=== PATIENT | female | born 1940 | race Caucasian/White ===

== ENCOUNTER 2023-06-24 17:01 | Inpatient (IN) | payer MEDICARE, OTHER ==
[2023-06-24] MEDS ORDERED: Furosemide 40 MG/4 ML VIAL ONE (18:13)
[2023-06-24] MEDS ORDERED: Nitroglycerin 2% Ointment 1 INCH/1 GM Packet ONE (18:13)
[2023-06-24 18:16] LABS: #Eosinphils 0.2 thou/uL (0.0-0.7); #Monocytes 0.4 thou/uL (0.11-0.59); #Neutrophils 3.7 thou/uL (1.40-6.50); %Basophils 0.4 % (0.0-1.0); %Eosinophils 4.2 % (0.0-10.0); %Lymphocytes 18.8 % (21.0-51.0); %Monocytes 8.1 % (0.0-10.0); %Neutrophils 68.3 % (42.0-75.0); Hematocrit 39.6 % (36.0-47.0); Hemoglobin 11.8 g/dL (12.0-16.0); Mean Corpuscular HGB CONC 29.8 g/dL (32.0-36.0); Mean Corpuscular Volume 87.2 fl (78.0-98.0); Platelet Count 202 10x3/uL (130-400); RBC Distribution Width 15.9 % (11.5-14.5); Red Blood Cell (RBC) Count 4.54 mill/uL (4.20-5.40); White Blood Cell (WBC) Count 5.4 10x3/uL (4.8-10.8)
[2023-06-24 18:37] LABS: INR-International Normal Ratio 1.4; Prothrombin Time 17.7 sec (12.0-14.7)
[2023-06-24 18:38] LABS: PTT 32.7 sec (22.9-36.1)
[2023-06-24 18:41] LABS: Troponin I 0.023 ng/mL (< 0.028)
[2023-06-24 18:53] LABS: ALT (SGPT) 13 U/L (8-55); AST (SGOT) 25 U/L (5-34); Albumin 3.3 g/dL (3.4-4.8); Alkaline Phosphatase 82 U/L (40-110); Anion Gap 11 mmol/L (10-20); BUN (Urea Nitrogen) 17 mg/dL (9.8-20.1); Bilirubin, Total 1.1 mg/dL (0.2-1.2); Calc. Creatinine Clearance 0 mL/min (70-130); Calcium 8.8 mg/dL (7.8-10.44); Carbon Dioxide 30 mmol/L (23-31); Chloride 102 mmol/L (98-107); Estimated GFR 55; Globulin 2.9 g/dL (2.4-3.5); Glucose 138 mg/dL (83-110); Potassium 4.9 mmol/L (3.5-5.1); Protein, Total 6.2 g/dL (5.8-8.1); Sodium 138 mmol/L (136-145)
[2023-06-24] MEDS ORDERED: Nitroglycerin 0.4 MG TAB 1 EACH ONE ×2 (19:39→19:41)
[2023-06-24] MEDS ORDERED: Senokot S 8.6-50 MG TAB PO PRN (19:55)
[2023-06-24] MEDS ORDERED: Acetaminophen 325 MG TAB PO PRN (19:55)
[2023-06-24] MEDS ORDERED: Ondansetron ODT 4 MG TAB PO PRN (19:55)
[2023-06-24] MEDS ORDERED: hydrALAZINE 25 MG TAB PO SCH (21:00)
[2023-06-24] MEDS: Gabapentin 100 MG CAP PO SCH (21:27)
[2023-06-24] MEDS: Carvedilol 3.125 MG TAB PO SCH (21:28)
[2023-06-24] MEDS: Atorvastatin Calcium 10 MG TAB PO SCH (21:28)
[2023-06-24 21:37] VITALS: BMI 41.9
[2023-06-24] MEDS: Famotidine 20 MG TAB PO SCH (21:41)
[2023-06-25] MEDS: ALPRAZolam 0.25 MG TAB PO PRN ×2 (02:54→21:05)
[2023-06-25 04:02] LABS: #Eosinphils 0.3 thou/uL (0.0-0.7); #Monocytes 0.5 thou/uL (0.11-0.59); #Neutrophils 3.5 thou/uL (1.40-6.50); %Basophils 0.6 % (0.0-1.0); %Lymphocytes 19.7 % (21.0-51.0); %Monocytes 9.1 % (0.0-10.0); %Neutrophils 64.4 % (42.0-75.0); Hematocrit 39.4 % (36.0-47.0); Hemoglobin 11.7 g/dL (12.0-16.0); Mean Corpuscular HGB CONC 29.7 g/dL (32.0-36.0); Mean Corpuscular Hemoglobin 26.1 pg (27.0-31.0); Mean Corpuscular Volume 87.9 fl (78.0-98.0); Mean Platelet Volume 11.4 fL (7.4-10.4); Platelet Count 197 10x3/uL (130-400); RBC Distribution Width 15.8 % (11.5-14.5); Red Blood Cell (RBC) Count 4.48 mill/uL (4.20-5.40); White Blood Cell (WBC) Count 5.4 10x3/uL (4.8-10.8)
[2023-06-25 04:28] LABS: Anion Gap 11 mmol/L (10-20); BUN (Urea Nitrogen) 17 mg/dL (9.8-20.1); Calc. Creatinine Clearance 83 mL/min (70-130); Calcium 8.6 mg/dL (7.8-10.44); Carbon Dioxide 31 mmol/L (23-31); Chloride 100 mmol/L (98-107); Estimated GFR 55; Glucose 168 mg/dL (83-110); Magnesium 1.5 mg/dL (1.6-2.6); Potassium 4.3 mmol/L (3.5-5.1); Sodium 138 mmol/L (136-145)
[2023-06-25] MEDS: Furosemide 40 MG/4 ML VIAL SLOW IVP SCH ×2 (05:17→14:21)
[2023-06-25] MEDS ORDERED: Magnesium 2 GM/50 ML(in water) 2 GM in Premix Bag 1 BAG IVPB SCH (08:15)
[2023-06-25] MEDS: Famotidine 20 MG TAB PO SCH ×2 (08:21→21:05)
[2023-06-25] MEDS: Carvedilol 3.125 MG TAB PO SCH ×2 (08:21→21:05)
[2023-06-25] MEDS: Losartan 25 MG TAB PO SCH (08:21)
[2023-06-25] MEDS: Gabapentin 100 MG CAP PO SCH ×2 (08:21→21:08)
[2023-06-25] MEDS: Aspirin Chewable 81 MG TAB PO SCH (08:21)
[2023-06-25] MEDS: metFORMIN 500 MG TAB PO SCH ×2 (08:21→17:39)
[2023-06-25] MEDS: Amlodipine 5 MG TAB PO SCH (08:22)
[2023-06-25] MEDS: hydrALAZINE 25 MG TAB PO SCH ×3 (10:04→21:05)
[2023-06-25 16:39] LABS: Free T4 (Free Thyroxine) 0.92 ng/dL (0.70-1.48)
[2023-06-25] MEDS: Enoxaparin 120 MG/0.8 ML SYRINGE SC SCH (21:04)
[2023-06-25] MEDS: Atorvastatin Calcium 10 MG TAB PO SCH (21:05)
[2023-06-26] MEDS: Furosemide 40 MG/4 ML VIAL SLOW IVP SCH ×2 (05:50→14:57)
[2023-06-26] MEDS: Enoxaparin 120 MG/0.8 ML SYRINGE SC SCH ×2 (09:06→20:00)
[2023-06-26] MEDS: Losartan 25 MG TAB PO SCH (09:07)
[2023-06-26] MEDS: hydrALAZINE 25 MG TAB PO SCH ×3 (09:07→19:59)
[2023-06-26] MEDS: Famotidine 20 MG TAB PO SCH ×2 (09:07→19:59)
[2023-06-26] MEDS: metFORMIN 500 MG TAB PO SCH ×2 (09:07→17:09)
[2023-06-26] MEDS: Aspirin Chewable 81 MG TAB PO SCH (09:07)
[2023-06-26] MEDS: Amlodipine 5 MG TAB PO SCH (09:07)
[2023-06-26] MEDS: Gabapentin 100 MG CAP PO SCH ×2 (09:08→19:59)
[2023-06-26] MEDS: Carvedilol 3.125 MG TAB PO SCH ×2 (09:08→19:58)
[2023-06-26 10:09] LABS: Anion Gap 11 mmol/L (10-20); BUN (Urea Nitrogen) 14 mg/dL (9.8-20.1); Calc. Creatinine Clearance 79 mL/min (70-130); Calcium 8.5 mg/dL (7.8-10.44); Carbon Dioxide 36 mmol/L (23-31); Chloride 96 mmol/L (98-107); Estimated GFR 56; Glucose 137 mg/dL (83-110); Magnesium 1.3 mg/dL (1.6-2.6); Potassium 3.6 mmol/L (3.5-5.1); Sodium 139 mmol/L (136-145)
[2023-06-26] MEDS: Atorvastatin Calcium 10 MG TAB PO SCH (19:58)
[2023-06-26] MEDS: ALPRAZolam 0.25 MG TAB PO PRN (20:00)
[2023-06-27 04:22] LABS: BUN (Urea Nitrogen) 14 mg/dL (9.8-20.1); Calc. Creatinine Clearance 76 mL/min (70-130); Calcium 8.2 mg/dL (7.8-10.44); Estimated GFR 55; Glucose 154 mg/dL (83-110)
[2023-06-27 04:33] LABS: Anion Gap 17 mmol/L (10-20); Carbon Dioxide 31 mmol/L (23-31); Chloride 96 mmol/L (98-107); Potassium 3.6 mmol/L (3.5-5.1); Sodium 140 mmol/L (136-145)
[2023-06-27] MEDS: Levothyroxine 175 MCG TAB PO SCH (06:19)
[2023-06-27] MEDS: Furosemide 40 MG/4 ML VIAL SLOW IVP SCH ×2 (06:20→15:13)
[2023-06-27 08:18] LABS: Magnesium 1.2 mg/dL (1.6-2.6)
[2023-06-27] MEDS: Gabapentin 100 MG CAP PO SCH ×2 (08:29→20:40)
[2023-06-27] MEDS: Aspirin Chewable 81 MG TAB PO SCH (08:29)
[2023-06-27] MEDS: Amlodipine 5 MG TAB PO SCH (08:29)
[2023-06-27] MEDS: Famotidine 20 MG TAB PO SCH ×2 (08:29→20:40)
[2023-06-27] MEDS: hydrALAZINE 25 MG TAB PO SCH ×3 (08:29→20:39)
[2023-06-27] MEDS: Carvedilol 3.125 MG TAB PO SCH ×2 (08:29→20:40)
[2023-06-27] MEDS: metFORMIN 500 MG TAB PO SCH ×2 (08:29→16:33)
[2023-06-27] MEDS: Enoxaparin 120 MG/0.8 ML SYRINGE SC SCH ×2 (08:29→20:40)
[2023-06-27] MEDS: Losartan 25 MG TAB PO SCH (08:29)
[2023-06-27] MEDS: ALPRAZolam 0.25 MG TAB PO PRN ×2 (08:33→20:38)
[2023-06-27] MEDS ORDERED: Magnesium 2 GM/50 ML(in water) 2 GM in Premix Bag 1 BAG IVPB SCH ×3 (11:45→16:00)
[2023-06-27] MEDS ORDERED: Magnesium Sulfate In Water 4 GM in Premix Bag 1 BAG IVPB SCH ×2 (12:00)
[2023-06-27] MEDS: traMADol HCl 50 MG TAB PO PRN (20:38)
[2023-06-27] MEDS: Atorvastatin Calcium 10 MG TAB PO SCH (20:39)
[2023-06-28 04:29] LABS: BUN (Urea Nitrogen) 16 mg/dL (9.8-20.1); Calc. Creatinine Clearance 77 mL/min (70-130); Calcium 8.2 mg/dL (7.8-10.44); Carbon Dioxide 36 mmol/L (23-31); Estimated GFR 57; Glucose 145 mg/dL (83-110); Magnesium 1.6 mg/dL (1.6-2.6)
[2023-06-28] MEDS: Levothyroxine 175 MCG TAB PO SCH (04:54)
[2023-06-28 07:12] LABS: Anion Gap 14 mmol/L (10-20); Chloride 93 mmol/L (98-107); Potassium 3.6 mmol/L (3.5-5.1); Sodium 138 mmol/L (136-145)
[2023-06-28] MEDS: metFORMIN 500 MG TAB PO SCH ×2 (11:08→15:24)
[2023-06-28] MEDS: Gabapentin 100 MG CAP PO SCH ×2 (11:08→20:40)
[2023-06-28] MEDS: Amlodipine 5 MG TAB PO SCH (11:09)
[2023-06-28] MEDS: hydrALAZINE 25 MG TAB PO SCH ×3 (11:09→20:40)
[2023-06-28] MEDS: Aspirin Chewable 81 MG TAB PO SCH (11:09)
[2023-06-28] MEDS: Furosemide 40 MG TAB PO SCH (11:09)
[2023-06-28] MEDS: Carvedilol 3.125 MG TAB PO SCH ×2 (11:10→20:43)
[2023-06-28] MEDS: Enoxaparin 120 MG/0.8 ML SYRINGE SC SCH ×2 (11:10→20:43)
[2023-06-28] MEDS: Famotidine 20 MG TAB PO SCH ×2 (13:25→20:42)
[2023-06-28] MEDS: Losartan 25 MG TAB PO SCH (16:41)
[2023-06-28] MEDS: Atorvastatin Calcium 10 MG TAB PO SCH (20:42)
[2023-06-28] MEDS: ALPRAZolam 0.25 MG TAB PO PRN (21:49)
[2023-06-29] MEDS: Levothyroxine 175 MCG TAB PO SCH (06:09)
[2023-06-29 07:49] LABS: BUN (Urea Nitrogen) 14 mg/dL (9.8-20.1); Calc. Creatinine Clearance 84 mL/min (70-130); Calcium 8.5 mg/dL (7.8-10.44); Estimated GFR 63; Glucose 124 mg/dL (83-110); Magnesium 1.6 mg/dL (1.6-2.6)
[2023-06-29 07:59] LABS: Anion Gap 17 mmol/L (10-20); Carbon Dioxide 33 mmol/L (23-31); Chloride 92 mmol/L (98-107); Potassium 3.7 mmol/L (3.5-5.1); Sodium 138 mmol/L (136-145)
[2023-06-29] MEDS: Gabapentin 100 MG CAP PO SCH ×2 (09:34→20:27)
[2023-06-29] MEDS: Aspirin Chewable 81 MG TAB PO SCH (09:35)
[2023-06-29] MEDS: Famotidine 20 MG TAB PO SCH (09:35)
[2023-06-29] MEDS: metFORMIN 500 MG TAB PO SCH ×2 (09:36→16:10)
[2023-06-29] MEDS: Amlodipine 5 MG TAB PO SCH (09:36)
[2023-06-29] MEDS: Carvedilol 3.125 MG TAB PO SCH ×2 (09:36→20:27)
[2023-06-29] MEDS: Furosemide 40 MG TAB PO SCH (09:37)
[2023-06-29] MEDS: Enoxaparin 120 MG/0.8 ML SYRINGE SC SCH (09:37)
[2023-06-29] MEDS: hydrALAZINE 25 MG TAB PO SCH ×3 (09:38→20:28)
[2023-06-29] MEDS: Losartan 25 MG TAB PO SCH (09:39)
[2023-06-29] MEDS ORDERED: Electrolyte Replacement Protocol 1 EACH FS SCH (10:30)
[2023-06-29] MEDS ORDERED: Electrolyte Replacement Protocol FS PRN (10:45)
[2023-06-29] MEDS ORDERED: Levothyroxine Sodium 25 MCG TAB PO SCH (10:45)
[2023-06-29] MEDS ORDERED: Magnesium 2 GM/50 ML(in water) 2 GM in Premix Bag 1 BAG IVPB SCH (10:45)
[2023-06-29] MEDS: traMADol HCl 50 MG TAB PO PRN (13:51)
[2023-06-29] MEDS: Furosemide 40 MG/4 ML VIAL SLOW IVP SCH (13:54)
[2023-06-29] MEDS: Atorvastatin Calcium 10 MG TAB PO SCH (20:27)
[2023-06-29] MEDS: Apixaban 5 MG TAB PO SCH (20:27)
[2023-06-29] MEDS: ALPRAZolam 0.25 MG TAB PO PRN (20:29)
[2023-06-30 04:53] LABS: BUN (Urea Nitrogen) 17 mg/dL (9.8-20.1); Calc. Creatinine Clearance 82 mL/min (70-130); Calcium 8.5 mg/dL (7.8-10.44); Estimated GFR 59; Glucose 159 mg/dL (83-110); Magnesium 1.7 mg/dL (1.6-2.6)
[2023-06-30 05:02] LABS: Anion Gap 18 mmol/L (10-20); Carbon Dioxide 32 mmol/L (23-31); Chloride 91 mmol/L (98-107); Potassium 3.8 mmol/L (3.5-5.1); Sodium 137 mmol/L (136-145)
[2023-06-30] MEDS: Levothyroxine Sodium 100 MCG TAB PO SCH (05:45)
[2023-06-30] MEDS: Furosemide 40 MG/4 ML VIAL SLOW IVP SCH ×2 (05:45→13:42)
[2023-06-30] MEDS: FLUoxetine HCl 10 MG CAP PO SCH (07:46)
[2023-06-30] MEDS: metFORMIN 500 MG TAB PO SCH ×2 (07:46→18:07)
[2023-06-30] MEDS: Gabapentin 100 MG CAP PO SCH ×2 (07:47→21:22)
[2023-06-30] MEDS: Losartan 25 MG TAB PO SCH (07:47)
[2023-06-30] MEDS: hydrALAZINE 25 MG TAB PO SCH ×3 (07:48→21:23)
[2023-06-30] MEDS: Aspirin Chewable 81 MG TAB PO SCH (07:49)
[2023-06-30] MEDS: Carvedilol 3.125 MG TAB PO SCH ×2 (07:49→21:22)
[2023-06-30] MEDS: Amlodipine 5 MG TAB PO SCH (07:49)
[2023-06-30] MEDS: Apixaban 5 MG TAB PO SCH ×2 (07:49→21:22)
[2023-06-30] MEDS ORDERED: Magnesium 2 GM/50 ML(in water) 2 GM in Premix Bag 1 BAG IVPB SCH (08:00)
[2023-06-30] MEDS ORDERED: Furosemide 40 MG TAB PO SCH (14:00)
[2023-06-30] MEDS: ALPRAZolam 0.25 MG TAB PO PRN (18:15)
[2023-06-30] MEDS: Atorvastatin Calcium 10 MG TAB PO SCH (21:22)
[2023-06-30] MEDS: traMADol HCl 50 MG TAB PO PRN (21:26)
[2023-07-01 05:51] LABS: Anion Gap 11 mmol/L (10-20); BUN (Urea Nitrogen) 17 mg/dL (9.8-20.1); Calc. Creatinine Clearance 87 mL/min (70-130); Calcium 8.3 mg/dL (7.8-10.44); Carbon Dioxide 37 mmol/L (23-31); Chloride 93 mmol/L (98-107); Estimated GFR 63; Glucose 170 mg/dL (83-110); Magnesium 1.7 mg/dL (1.6-2.6); Potassium 3.7 mmol/L (3.5-5.1); Sodium 137 mmol/L (136-145)
[2023-07-01] MEDS: Levothyroxine Sodium 100 MCG TAB PO SCH (05:55)
[2023-07-01] MEDS: hydrALAZINE 25 MG TAB PO SCH ×2 (08:43→14:04)
[2023-07-01] MEDS: Losartan 25 MG TAB PO SCH (08:43)
[2023-07-01] MEDS: Aspirin Chewable 81 MG TAB PO SCH (08:43)
[2023-07-01] MEDS: FLUoxetine HCl 10 MG CAP PO SCH (08:43)
[2023-07-01] MEDS: Gabapentin 100 MG CAP PO SCH (08:43)
[2023-07-01] MEDS: Furosemide 40 MG TAB PO SCH ×2 (08:44→14:04)
[2023-07-01] MEDS: Carvedilol 3.125 MG TAB PO SCH (08:44)
[2023-07-01] MEDS: Apixaban 5 MG TAB PO SCH (08:44)
[2023-07-01] MEDS: Amlodipine 5 MG TAB PO SCH (08:44)
[2023-07-01] MEDS: metFORMIN 500 MG TAB PO SCH (08:44)
[2023-07-01] MEDS ORDERED: Magnesium 2 GM/50 ML(in water) 2 GM in Premix Bag 1 BAG IVPB SCH (10:00)
[2023-07-01 15:55] VITALS: BP 119/62; TEMP 98.3
== END 2023-07-01 16:50 | DRG 291 ==
LOC: ERS 17:01 → 2NO 19:48 → INTOOBSV 19:48 → OBSVTOIN 06-25 16:05
PROVIDERS: ADMIT Student in an Organized Health Care Education/Training Program; ATTEND Internal Medicine
DX: I11.0 Hypertensive heart disease with heart failure (principal); I50.33 Acute on chronic diastolic (congestive) heart failure; J96.01 Acute respiratory failure with hypoxia; I31.39 Other pericardial effusion (noninflammatory); I48.91 Unspecified atrial fibrillation; R53.81 Other malaise; E11.9 Type 2 diabetes mellitus without complications; F32.A Depression, unspecified; E03.9 Hypothyroidism, unspecified; E78.5 Hyperlipidemia, unspecified; F41.9 Anxiety disorder, unspecified; R00.1 Bradycardia, unspecified; I08.0 Rheumatic disorders of both mitral and aortic valves; E83.42 Hypomagnesemia; D64.9 Anemia, unspecified; Z90.710 Acquired absence of both cervix and uterus; Z90.49 Acquired absence of other specified parts of digestive tract; Z79.84 Long term (current) use of oral hypoglycemic drugs; Z79.899 Other long term (current) drug therapy; Z88.0 Allergy status to penicillin; Z88.8 Allergy status to other drugs, medicaments and biological substances; Z88.2 Allergy status to sulfonamides; Z88.1 Allergy status to other antibiotic agents; Z79.82 Long term (current) use of aspirin
CPT/HCPCS: 36415; 36416; 71045; 80048; 80053; 82728; 83735; 83880; 84100; 84439; 84443; 84481; 84484; 85025; 85610; 85730; 93005; 93010; 93306; 96372; 96374; 96375; 96376; G0378; J1650; J1940; J3475; Q0162